=== PATIENT | female | born 1995 | race Caucasian/White ===

== ENCOUNTER 2023-07-09 05:51 | Emergency (ER) | payer BC ==
[~2023-07-09] VITALS: Ht 172.7 cm; Wt 100.0 kg
[2023-07-09 06:01] VITALS: O2SAT 98
[2023-07-09] MEDS ORDERED: KETOROLAC 60MG/2ML VIAL IM STA (06:29)
[2023-07-09] MEDS ORDERED: MAGNESIUM/ALUMINUM HYDROXIDE/SIMETHICONE 30ML UDC PO STA (06:29)
[2023-07-09 06:50] LABS: BASOPHILS % 0.6 % (0.0-2.0); EOSINOPHILS % 4.9 % (0.0-5.0); HEMOGLOBIN. 15.2 g/dL (12.0-16.0); LYMPHOCYTES % 20.6 % (20.0-50.0); MEAN CORPUSCULAR HEMOGLOBIN 31.7 pg (28.0-32.0); MEAN CORPUSCULAR HGB CONC 34.5 g/dL (31.0-37.0); MEAN CORPUSCULAR VOLUME 91.9 fL (81.0-99.0); MEAN PLATELET VOLUME 9.7 fl (7.4-10.4); MONOCYTES % 5.3 % (2.0-8.0); NEUTROPHILS % 68.6 % (40.0-76.0); PLATELET 241 x1000/uL (130-400); RED BLOOD CELL COUNT 4.79 mill/uL (4.2-5.4); WHITE BLOOD COUNT 10.7 x1000/uL (4.5-11.0)
[2023-07-09 07:04] LABS: PROTHROMBIN TIME 10.9 sec (9.6-11.0)
[2023-07-09 07:14] LABS: CHLORIDE 110 mEq/L (98-107); INDEX HEMOLYSI 1 (1-3); INDEX ICTERIC 1 (1-4); INDEX LIPEMIC 1 (1-3); POTASSIUM 3.6 mEq/L (3.5-5.1); SODIUM 140 mEq/L (136-145)
[2023-07-09] MEDS: FAMOTIDINE 20MG TABLET PO SCH ×2 (07:15→07:23)
[2023-07-09 07:22] LABS: ALANINE AMINOTRANSFERASE 38 IU/L (13-61); ALBUMIN 3.9 g/dL (3.4-5.0); ASPARTATE AMINOTRANSFERASE 18 IU/L (15-37); BILIRUBIN TOTAL 0.2 mg/dL (0.1-1.0); CALCIUM 9.2 mg/dL (8.5-10.1); CARBON DIOXIDE 26 mEq/L (21-32); CREATININE 0.6 mg/dL (0.6-1.3); GLUCOSE 113 mg/dL (70-105); PROTEIN TOTAL 8.2 g/dL (6.0-8.3); UREA NITROGEN BLOOD 10 mg/dL (7-21)
[2023-07-09 08:29] LABS: HCG SCREEN NEGATIVE
[2023-07-09 10:15] LABS: CLARITY URINE TURBID (CLEAR); COLOR URINE DARK YELLOW (YELLOW); GLUCOSE URINE NEGATIVE (NEGATIVE); KETONES URINE TRACE (NEGATIVE); LEUKOCYTE ESTERASE URINE NEGATIVE (NEGATIVE); NITRITE URINE NEGATIVE (NEGATIVE); OCCULT BLOOD URINE NEGATIVE (NEGATIVE); PH URINE 5.5 (4.5-8.0); PROTEIN URINE 1+ (NEGATIVE)
[2023-07-09 10:19] LABS: YEAST URINE NONE SEEN
[2023-07-09 10:42] LABS: RBC URINE 0-2 /hpf (0-2); SQUAMOUS EPITHELIAL CELL URINE 1+ /lpf (RARE/1+); WBC URINE 0-2 /hpf (0-2)
[2023-07-09 10:43] LABS: BACTERIA URINE 4+
[2023-07-09 10:44] LABS: AMORPHOUS SEDIMENT URINE 2+ /lpf
[2023-07-09] MEDS ORDERED: ACETAMINOPHEN 325MG TABLET PO ONE (10:45)
[2023-07-09] MEDS ORDERED: SUCRALFATE 1 G/10 ML UDC PO ONE (10:45)
[2023-07-09] MEDS ORDERED: HYDROCODONE/ACETAMINOPHEN 10/325MG TABLET PO NR (12:00)
[2023-07-09 12:03] LABS: TROPONIN I HIGH SENSITIVITY 4 ng/L (<54)
[2023-07-09] MEDS ORDERED: SULF1TAB48 MT (12:28)
[2023-07-09 12:43] VITALS: BP 132/84; PULSE 84; RESP 18; TEMP 98.4
== END 2023-07-09 12:44 | disposition home or self-care (01) ==
LOC: ER 05:51
DX: N39.0 Urinary tract infection, site not specified (principal); K29.70 Gastritis, unspecified, without bleeding; R10.13 Epigastric pain; F41.9 Anxiety disorder, unspecified; F31.9 Bipolar disorder, unspecified; Z98.890 Other specified postprocedural states
CPT/HCPCS: 99285; 74176; 80053; 81003; 81025; 84703; 83690; 85025; 85379; 85610; 84484; 36415; 93005; 96372; J1885

== ENCOUNTER 2023-08-13 11:40 | Emergency (ER) | payer BC ==
[~2023-08-13] VITALS: Ht 167.6 cm; Wt 114.0 kg
[~2023-08-13 11:40] MED LIST: SULF1TAB48 MT
[2023-08-13 11:56] VITALS: BP 134/60; PULSE 90; RESP 16; TEMP 97.8; O2SAT 97
== END 2023-08-13 15:05 | disposition home or self-care (01) ==
LOC: ER 11:40
DX: Z00.00 Encounter for general adult medical examination without abnormal findings (principal); F41.9 Anxiety disorder, unspecified; F31.9 Bipolar disorder, unspecified
CPT/HCPCS: 99283